=== PATIENT | female | born 1960 | race Caucasian/White ===

== ENCOUNTER 2016-10-10 09:21 | Emergency (ER) | payer OTHER ==
--- NOTE | ~2016-10-10 | CT71 ---
[facility] A Service of [facility] RADIOLOGY TEXT RESULTS PATIENT: VALENCIA LEMUS LOCATION: [facility] : 58 UNIT #: [id number] AGE: [address]: Adrien Giang MD SEX: F ORDER DR: [id number] [id number] [facility] [place], [place] [address] [id number] E MR#: [id number] Acc #: [id number] NAME: VALENCIA LEMUS : 1960 SEX: F STUDY DATE/TIME: 10/10/2016 10:16 UNIT: [facility] ROOM: STUDY DESCRIPTION: CT Head Wo Contrast Attending Physician: Adrien Giang M.D. Ordering Physician: Adrien Giang M.D. Primary Care Physician: Jordan Moncada M.D. MEDICAL IMAGING REPORT This report is preliminary unless electronic signature is present EXAM CT head, noncontrast, 10/10/2016. HISTORY 56-year-old female in the ED with new onset confusion/mental status changes beginning earlier today. TECHNIQUE CT examination of the head without IV contrast. This CT exam was performed with one or more of the following radiation dose reduction techniques: automatic exposure control, adjustment of mA and/or kV according to patient size, and iterative reconstruction. FINDINGS The images are degraded by patient motion artifact. No acute intracranial abnormality is visible and no skull fracture is seen. Mild generalized cerebral atrophy. Mild diffuse low-attenuation white matter changes, nonspecific, but likely related to chronic microvascular disease. These findings are unchanged since 05/06/2016. Incidentally noted congenital cavum septum pellucidum, a normal variant. No evidence of intracranial hemorrhage, mass, mass effect, acute cerebral edema or hydrocephalus. Mucosal thickening is noted throughout the ethmoid sinuses, and there is a mucous retention cyst or polyp in the left maxillary sinus. IMPRESSION 1. Motion limited exam. 2. No acute intracranial abnormality. 3. Stable diffuse chronic changes as noted. [facility] A Service of [facility] RADIOLOGY TEXT RESULTS PATIENT: VALENCIA LEMUS LOCATION: [facility] : 58 UNIT #: [id number] AGE: [address]: Adrien Giang MD SEX: F ORDER DR: 4. No change since 05/06/2016. Dictated by... Malcolm Jay M.D. THIS IS AN ELECTRONICALLY VERIFIED REPORT Malcolm Jay M.D. at 10/10/2016 3:57 PM RGW/tracy TD: 10/10/2016 12:33 JOB #: [id number] MEDICAL IMAGING REPORT Page 1 of 1 COPY
--- NOTE | ~2016-10-10 | EKG ---
PATIENT: VALENCIA LEMUS UNIT #: [id number] Ventricular Rate: 54 BPM Atrial Rate: 54 BPM P-R Interval: 158 ms QRS Duration: 100 ms Q-T Interval: 360 ms QTC Calculation(Bezet): 341 ms P [place]: 84 degrees Calculated R [place]: -61 degrees Calculated T [place]: 72 degrees Diagnosis Line: Sinus bradycardia Diagnosis Line: Left anterior fascicular block Diagnosis Line: Nonspecific T wave abnormality Diagnosis Line: Abnormal ECG Diagnosis Line: When compared with ECG of 28-FEB-2012 06:23, Diagnosis Line: Vent. rate has increased BY 19 BPM Diagnosis Line: Nonspecific T wave abnormality no longer evident Diagnosis Line: in Inferior leads Diagnosis Line: T wave inversion no longer evident in Lateral Diagnosis Line: leads Diagnosis Line: Confirmed by FRANCESCA GOODWIN MD ([id number]) on 10/11/2016 Diagnosis Line: 5:39:29 AM INTERPRETING MD: BUDDY DAVIES
--- NOTE | ~2016-10-10 | CR72 ---
[facility] A Service of [facility] RADIOLOGY TEXT RESULTS PATIENT: VALENCIA LEMUS LOCATION: [facility] : 58 UNIT #: [id number] AGE: [address]: Adrien Giang MD SEX: F ORDER DR: [id number] [facility] [address] [place], [place] [address] [id number] E MR#: [id number] Acc #: [id number] NAME: VALENCIA LEUMS : 1960 SEX: F STUDY DATE/TIME: 10/10/2016 9:56 UNIT: [facility] ROOM: STUDY DESCRIPTION: CR Chest Single View Portable Attending Physician: Adrien Giang M.D. Ordering Physician: Adrien Giang M.D. Primary Care Physician: Jordan Moncada M.D. MEDICAL IMAGING REPORT This report is preliminary unless electronic signature is present EXAM AP portable chest, 10/10/2016 HISTORY 56-year-old female in the ED with new onset shortness of air and mental status changes today. TECHNIQUE AP portable chest x-ray. FINDINGS No active disease in the chest. The lungs are expanded and clear. Heart size and pulmonary vascularity are normal. No change since 02/28/2012. Old right lower rib fracture deformities. IMPRESSION 1. No active disease. 2. Old right lower rib fractures. Dictated by... Malcolm Jay M.D. THIS IS AN ELECTRONICALLY VERIFIED REPORT Malcolm Jay M.D. at 10/10/2016 3:57 PM [place]iah TD: 10/10/2016 11:53 JOB #: [id number] MEDICAL IMAGING REPORT Page 1 of 1 COPY
[~2016-10-10 09:21] MED LIST: ACETAMINOPHEN PO; AUGMENTIN PO; BACITRACIN/POLY30 GM TOP; BACTRIM DS TABL1 TA1 PO; CITALOPRAM HBR40 MG PO; COLACE PO; COLACE50 MG PO; DUONEB 2.5-0.5 M3 ML NEB; FERROUS SULFATE PO; HYDROCODONE-APA1 T42 PO; IRON SUPPLEMENT1 TAB PO; LANTUS100 U/M1 SUBQ; LEVAQUIN PO; LEXAPRO PO; LORTAB 5/500 TA1 TA2 PO; NOVOLOG100 U/M1; NOVOLOG100 U/M1 SUBQ; PRILOSEC PO; PRILOSEC20 MG PO; ROBITUSSIN-DM118 M1 PO; SANTYL15 G1 TP; SODIUM CHLORI1000 ML TOP; VICODIN 5/1 TAB 5/50 PO; [UNRECOGNIZED DRUG - OTHER] PO
[2016-10-10 10:12] LABS: BASOPHIL% 0.6 % (0-2.5); EOSINOPHIL# 0.2 X10e3 (0-0.7); EOSINOPHIL% 2.6 % (0.0-7.0); HEMATOCRIT 42.8 % (35.0-45.0); HEMOGLOBIN 14.3 gm/dL (12.0-16.0); LYMPHOCYTE# 1.2 X10e3 (1.0-3.5); LYMPHOCYTE% 14.5 % (17.0-45.0); MEAN CELL VOLUME 93.8 FL (83-96); MEAN CORPUSCULAR HEMOGLOBIN 31.4 PG (28-34); MEAN CORPUSCULAR HGB CONC 33.4 g/dL (30-36); MEAN PLATELET VOLUME 9.6 FL (6.5-11.5); MONOCYTE# 0.6 X10e3 (0-1.0); MONOCYTE% 7.6 % (3.0-12.0); NEUTROPHIL# 5.9 X10e3 (1.5-7.1); NEUTROPHIL% 74.7 % (40-75); PLATELET COUNT 118 X10e3 (140-420); RED BLOOD COUNT 4.56 X10e (3.90-5.30); RED CELL DISTRIBUTION WIDTH 13.6 % (11.0-15.5)
[2016-10-10 10:13] LABS: URINE APPEARANCE CLEAR; URINE BILIRUBIN NEG (NEG); URINE BLOOD 1+ (NEG); URINE COLOR YELLOW; URINE GLUCOSE >1000 MG/DL (NEG); URINE KETONE NEG (NEG); URINE LEUKOCYTE ESTERASE 2+ (NEG); URINE NITRATE NEG (NEG); URINE PH 6.5 (5-8); URINE PROTEIN NEG (NEG); URINE SPECIFIC GRAVITY 1.013 (1.003-1.035); URINE UROBILINOGEN 0.2 MG/DL (NEG)
[2016-10-10 10:14] LABS: DIFF IND NO
[2016-10-10 10:14] LABS: CULTURE INDICATED? YES; URINE BACTERIA AUWI NEG (NEGATIVE); URINE SQUAMOUS EPITHELIAL CELL NONE SEEN /[HPF]; UWBCS1 AUWI 50-100 (0-5)
[2016-10-10 10:15] LABS: URINE SOURCE CATH
[2016-10-10 10:40] LABS: BILIRUBIN, DIRECT 0.1 mg/dL (0.0-0.2); BILIRUBIN,INDIRECT 0.4 mg/dL (0.0-0.9); BILIRUBIN,TOTAL 0.5 mg/dL (0.2-2.0); BUN/CREATININE RATIO 11.42; CALCIUM SERUM 9.1 mg/dL (8.4-10.2); CREATININE SERUM 0.7 mg/dL (0.6-1.4); GLOM FILT RATE Estimated 96.2 mL/min (>60); POTASSIUM 4.1 mmol/L (3.5-5.1); PROTEIN TOTAL SERUM 7.3 g/dL (6.0-8.3)
== END 2016-10-10 12:09 | disposition home or self-care (01) ==
LOC: CED 09:21
PROVIDERS: Emergency Medicine
DX: N39.0 Urinary tract infection, site not specified (principal); E87.1 Hypo-osmolality and hyponatremia; E10.65 Type 1 diabetes mellitus with hyperglycemia
CPT/HCPCS: 36415; 51701; 70450; 71010; 80048; 80076; 80164; 81003; 82140; 85025; 87086; 93005; 96374; 99284